=== PATIENT | female | born 1995 | race Caucasian/White ===

== ENCOUNTER 2024-02-09 18:03 | Emergency (ER) | payer OTHER, SELFPAY ==
[2024-02-09 18:09] VITALS: BP 142/89
--- NOTE | 2024-02-09 18:48 | ED.GENMED ---
History of Present Illness
General
Chief Complaint: Abdominal Pain
Source: patient
Exam Limitations: none
Time Seen by Provider: 02/09/24 18:16
History of Present Illness
History of Present Illness:
This is a 28 year old female that comes in with c/o abd pain. States that for the past 2 weeks she has had abd pain. Yesterday she went to and they thought it could be food poisoning as she has had diarrhea with nausea but no vomiting. States
that they gave her medication for abd cramping, Zofran for nausea and a stool softener. States that she was told if her pain continued to go to the ER. States that she still has pain, nausea and diarrhea. Denies any fever, chills, chest pain, SOB,
vomiting, headache, dizziness, urinary burning.
Past History
Past History
ED Past Medical History: GERD
ED Past Surgical History: Gynecological (fallopian tubes removed, ectopic )
Social History
Tobacco: Smoker
Alcohol: None
Personal: Single
Living: with family
Review of Systems
Review of Systems
All Other Systems: ROS reviewed and negative except as documented in HPI and ROS
Constitutional: Reports no symptoms; Denies fever or chills
EENT: Reports no symptoms
Respiratory: Reports no symptoms; Denies cough or trouble breathing
Cardiac: Reports no symptoms; Denies chest pain
ABD/GI: Reports abdominal pain, nausea and diarrhea; Denies vomiting
: Reports no symptoms; Denies dysuria, frequency or urgency
Musculoskeletal: Reports no symptoms
Skin: Reports no symptoms
Neurological: Reports no symptoms; Denies dizzy or headache
Psychiatric: Reports no symptoms
Phy Exam
General Physical Exam
General Presentation: no apparent distress
General age: appears stated age
General Skin: warm and dry
General Habitus: normal
General Mental: alert
General Hydration: appears well hydrated
ENT Exam
ENT Exam: TM's normal, pharynx normal and neck supple
Eye Exam
Eye Exam: EOMI
Cardiovascular Exam
Cardiovascular Exam: regular rate/rhythm, no edema, no murmur and normal peripheral pulses
Pulmonary Exam
Pulmonary Exam: lungs clear, no respiratory distress, no rales, chest non tender, no crackles, no rhonchi, no wheezing and no cough
Gastrointestinal Exam
Gastrointestinal Exam: normal bowel sounds, soft, no organomegaly, no pulsatile mass, non distended and tender (Generalized abd tenderness with palpation)
Musculoskeletal Exam
Musculoskeletal Exam: full ROM and no edema
Skin Exam
Skin Exam: normal color, warm/dry, no rash and no petechia
Psychiatric Exam
Psychiatric Exam: normal mood/affect
Course
Orders/Labs/Results
Orders:
Orders
02/09/24 18:47
CT Abd/pel W Iv And Oral Contr Urgent
Comment:
Reason For Exam: abd pain
0.9% Sodium Chloride 1000 ml [Nss] 1,000 ml IV BOLUS
Iohexol [Omnipaque] See Protocol PO NOW STA
Ketorolac [Toradol] 30 mg IV NOW STA
Test Result ONCE
02/09/24 18:52
Pantoprazole [Protonix IV] 40 mg IV NOW STA
02/09/24 18:53
Complete Blood Count/With Diff Urgent
Comprehensive Metabolic Panel Urgent
HCG, Serum Qualitative Screen Urgent
02/09/24 20:28
Acetaminophen 1000MG/100Ml [Ofirmev] 1,000 mg in 100 ml IV ONCE
Acetaminophen IV Indication:: ED Narcotic Naive Pt-ONCE
02/09/24 22:02
Magnesium Citrate [Citroma] 300 ml PO ONCE ONE
Sucralfate Suspension [Carafate Suspension] 1 gm PO NOW STA
Abnormal Lab Results
02/09/24
18:53
RBC 3.95 L 10^6/uL
(4.20-5.40)
Hct 36.3 L %
(37.0-47.0)
MCH 33.4 H pg
(27.0-31.0)
Chloride 108 H mmol/L
(98-107)
Carbon Dioxide 20 L mmol/L
(22-30)
BUN 18 H mg/dl
(7-17)
Creatinine 0.5 L mg/dL
(0.6-1.0)
02/09/24 18:53
02/09/24 18:53
carbon dioxide slightly low. HCG negative.
Vital Signs
Initial and Last Documented VS:
Initial Vital Signs
Temp Pulse Resp BP Pulse Ox
98.1 F 76 18 142/89 99
02/09/24 18:09 02/09/24 18:09 02/09/24 18:09 02/09/24 18:09 02/09/24 18:09
Last Documented Vital Signs
Temp Pulse Resp BP Pulse Ox
98.1 F 76 18 130/85 96
02/09/24 18:09 02/09/24 18:09 02/09/24 18:09 02/09/24 20:00 02/09/24 20:30
MDM/Problems Addressed
Differential Diagnosis Includes:
Colitis, diverticulitis, Gastritis
MDM/Problems Addressed:
This is a 28 year old female that comes in with c/o abd pain. States that this has been going on for 2 weeks. States that she is nauseated and has diarrhea. Patient was seen at yesterday and given Zofran, something for abd cramping and stool
softener.
will check labs, CT scan, Give IV fluids and medicate for pain.
Back into see patient. Explained that her blood work shows very slight Dehydration, otherwise normal. Her Ct shows that she has bilateral ovarian cyst, Constipation and Gastroenteritis. Explained to patient that this will go away on its own.
However, will give patient a bottle of magnesium citrate to help with the constipation and also place patient on Carafate and Protonix to help coat the stomach. Patient to increase her water intake to 8-8oz glasses daily. Follow up with the family
doctor. Return with any concerns.
Chronic conditions affecting care:
NA
Acute Exacerbation and/or Progression of Chronic Illness:
NA
*Radiology
Radiology exam reviewed: radiology read reviewed (CT-Severe periportal edeam in the liver and mild hepatomegaly. MIld distention of the stomach and small bowel loops with mild wall thickening throughout jejunal loops suspicious for a mild
gastroenteritis. Moderate amount of fecal material in the proximal colon suggesting constipation. Small b) and other (CT cont- Small bilateral ovarian cysts and minimal peritoneal fluid in the pelvis. Mild splenomegaly. )
*Pulse Oximetry
Patient hypoxic: no
*EKG
Interpreted by ED Provider?: NA
Rate: EKG- N/A
*[employer] Interpretation
Rate: [employer]- N/A
*Critical Care Note
Total Time (30-74mins, 75-104mins- exclusive of procedures): Not Applicable
ED Attending Note
-
Portions of this chart may have been created with voice recognition software.� Occasional wrong word or��sound alike� substitutions may have occurred due to the inherent limitations of voice recognition software.
Discharge Plan
Departure
Patient Disposition: Home (Routine Discharge)
Date of Disposition: 02/09/24
Time of Disposition: 22:04
Patient with high blood pressure during this ER visit?: Yes
Condition: Good
Covid-19: Not Applicable
Discharge Problem:
Gastroenteritis, Constipation, Ovarian cyst
Instructions: Ovarian Cyst (DC), Abdominal Pain, BLOOD PRESSURE
Prescriptions:
New
pantoprazole [Protonix] 40 mg tablet,delayed release (DR/EC)
40 mg PO DAILY Qty: 10 0RF
sucralfate [Carafate] 1 gram tablet
1 g PO ACHS Qty: 40 0RF
Rx Instructions:
Dissolve in 2 tsp of water and drink 30min-1hour before meals and HS
Referrals:
UNKNOWN - PT DOES,NOT KNOW [Family Provider] -
Activity Restrictions/Additional Instructions:
As discussed, your blood work is normal. Your CT shows that you have bilateral ovarian cyst. You also have Gastroenteritis. This is move viral and will go away on its own. You are also constipated. You have been given a bottle of magnesium Citrate.
This can cause abd cramping and can take up to 6 hours to work but will push the stool from the top down. Please increase your water intake to 8-8oz glasses daily. You have also had two prescriptions sent to your Pharmacy. This will help coat the
stomach and decrease your discomfort. Please take the Carafate 30min to 1 hour before meals and at bedtime. Please dissolve the tablet in 2 tsp of water and drink. Please follow up with the family doctor for further evaluation. IF YOU HAVE INCREASED
OR CHANGING PAIN, OR YOU HAVE ANY OTHER CONCERNS PLEASE RETURN TO THE EMERGENCY ROOM.
Interventions
Interventions:
*Risk Screen - Suicide Last Done: 02/09/24 18:09
*General Assessment Last Done: 02/09/24 18:51
*Neglect/Abuse Screening Last Done: 02/09/24 18:09
*ED COVID-19 Vaccine History Last Done: 02/09/24 18:51
XS-Fxmdxm-Cxnkyywglk Assessment Last Done: 02/09/24 19:03
Discharge Date and Time
Print Language: [place]
[2024-02-09 18:56] VITALS: BP 131/72
[2024-02-09] MEDS: OMNIPAQUE 50 ML PO (18:58)
[2024-02-09] MEDS: NSS 1000 IV (18:58)
[2024-02-09] MEDS: TORADOL 30 MG IV (18:58)
[2024-02-09] MEDS: PROTONIX IV 40 MG IV (18:58)
[2024-02-09 19:00] VITALS: BP 136/89
[2024-02-09 19:09] LABS: % Basophils 0.5 % (0-2); % Eosinophils 4.1 % (0-6); % Immature Granulocytes 0.3 % (0-0.5); % Lymphocytes 39.5 % (20.5-51.1); % Monocytes 7.4 % (1.7-9.3); % Neutrophils 48.2 % (42.2-75.2); Absolute Eosinophils 0.3 10^3/uL (0-0.7); Absolute Lymphocytes 2.5 10^3/uL (1.2-3.4); Absolute Monocytes 0.5 10^3/uL (0.1-0.6); Absolute Neutrophils 3.1 10^3/uL (1.4-6.5); Hematocrit 36.3 % (37.0-47.0); Hemoglobin 13.2 g/dL (12.0-16.0); Mean Corp Hgb Conc. 36.4 g/dL (33.0-37.0); Mean Corpuscular Hgb 33.4 pg (27.0-31.0); Mean Corpuscular Volume 91.9 fL (81.0-99.0); Mean Platelet Volume 10.3 fL (7.4-10.4); Nucleated Red Blood Cells % 0 %; Platelet Count 159 10^3/uL (130-400); Red Blood Cell Count 3.95 10^6/uL (4.20-5.40); Red Cell Dist. Width 11.7 % (11.5-14.5); White Blood Cell Count 6.3 10^3/uL (4.8-10.8)
[2024-02-09 19:20] LABS: HCG, Serum Qualitative Screen Negative
[2024-02-09 19:25] LABS: ALT (SGPT) 21 U/L (0-35); AST (SGOT) 25 U/L (14-36); Albumin 3.9 g/dl (3.5-5.0); Alkaline Phosphatase 46 U/L (38-126); Blood Urea Nitrogen 18 mg/dl (7-17); Calcium 9.2 mg/dl (8.4-10.2); Carbon Dioxide 20 mmol/L (22-30); Chloride 108 mmol/L (98-107); Glucose 97 mg/dl (70-99); Potassium 4.2 mmol/L (3.5-5.1); Sodium 139 mmol/L (135-145); Total Bilirubin 0.6 mg/dl (0.2-1.3); Total Protein 6.3 g/dl (6.3-8.2); eGFR > 60.00
[2024-02-09 20:00] VITALS: BP 130/85
[2024-02-09] MEDS: OFIRMEV 100 IV (20:35)
[2024-02-09 21:00] VITALS: BP 133/80
[2024-02-09 22:00] VITALS: BP 123/82
[2024-02-09] MEDS: CARAFATE SUSPENSION 1 GM PO (22:26)
[2024-02-09] MEDS: CITROMA 300 ML PO (22:26)
== END 2024-02-09 22:47 | disposition home or self-care (01) ==
LOC: EMR 18:03
PROVIDERS: Clinical Nurse Specialist Family Health; EMERGENCY PHYSICIAN Student in an Organized Health Care Education/Training Program
DX: K52.9 Noninfective gastroenteritis and colitis, unspecified (principal); K59.00 Constipation, unspecified; N83.202 Unspecified ovarian cyst, left side; N83.201 Unspecified ovarian cyst, right side; F17.200 Nicotine dependence, unspecified, uncomplicated; R03.0 Elevated blood-pressure reading, without diagnosis of hypertension
CPT/HCPCS: 99285; 96374; 96375 ×2; 96361; 74177; 80053; 84703; 85025; Q9967